=== PATIENT | female | born 1960 | race Hispanic/Latino ===

== ENCOUNTER 2018-05-17 22:09 | Emergency (ER) | payer OTHER ==
[~2018-05-17] VITALS: Ht 152.4 cm; Wt 71.4 kg
[2018-05-17 22:49] LABS: HEMOGLOBIN 12.7 G/DL (11.9-15.5); MCH 31.5 PG (29.0-34.0); MCHC 34.3 G/DL (30.0-36.0); MCV 91.8 FL (83-99); PLATELET COUNT 316 K/uL (156-360); RBC DIS.WIDTH-CV 11.9 % (11.8-14.6); RBC DIS.WIDTH-SD 40.7 % (39-53); RED BLOOD COUNT 4.03 M/uL (3.80-5.20); WHITE BLOOD COUNT 9.5 K/uL (4.1-10.2)
[2018-05-17 22:57] LABS: ALBUMIN 4.2 g/dL (3.2-4.8); CHLORIDE 102 mEq/L (99-109); POTASSIUM 4.4 mEq/L (3.7-5.4); SODIUM 137 mEq/L (136-147)
[2018-05-17 23:00] LABS: GLUCOSE 104 mg/dL (70-99); TOTAL PROTEIN 7.2 g/dL (6.4-8.3)
[2018-05-17 23:01] LABS: TOTAL BILIRUBIN 0.3 mg/dL (0.0-1.0)
[2018-05-17 23:03] LABS: ALKALINE PHOSPHATASE 113 IU/L (3-129); CREATININE 0.8 mg/dL (0.6-1.3)
[2018-05-17 23:04] LABS: UREA NITROGEN (BUN) 10 mg/dL (9-23)
[2018-05-17 23:05] LABS: AST (GOT) 37 IU/L (2-34)
[2018-05-17 23:06] LABS: ALT (GPT) 35 IU/L (3-49); GFR ESTIMATE (CALCULATED) > 59 mL/min/
[2018-05-18] MEDS ORDERED: ORAMAGIC PLUS210 ML MM (01:23)
[2018-05-18] MEDS ORDERED: ULTRAM50 MG PO (01:23)
[2018-05-18] MEDS ORDERED: AUGMENTIN875 MG PO (01:23)
[2018-05-18 02:24] VITALS: BP 117/74
== END 2018-05-18 02:24 | disposition home or self-care (01) ==
LOC: EME 22:09
PROC: 3E0T3BZ Introduction of Anesthetic Agent into Peripheral Nerves and Plexi, Percutaneous Approach (ICD-10-PCS; principal; 2018-05-17)
DX: K04.7 Periapical abscess without sinus (principal); K05.10 Chronic gingivitis, plaque induced; I10 Essential (primary) hypertension
CPT/HCPCS: 80053; 81003; 85027; 99281; 99284; J0561